=== PATIENT | female | born 1965 | race Caucasian/White ===

== ENCOUNTER → 2018-08-25 | Outpatient (CLI) | payer OTHER ==
[~2018-08-25] MED LIST: ACET500 PO; ALBU90OI6 INH; AMLO5 PO; ASCO500 PO; ASPI81CH PO; ATOR10 PO; CALCIUM + D3 E1 EACH PO; Cheratussin AC118 ML PO; Cholestyramine R5 GM; DULO30 PO; FLONASE ALLERG9.9 ML; LEVSOD88 PO; LORA10ER PO; METO25ER PO; MONT10T PO; POTCHL10ER; Zantac150 MG PO
== END | disposition home or self-care (01) ==
LOC: LAB 16:23 → LAB SHORT 16:23
DX: N39.0 Urinary tract infection, site not specified (principal)
CPT/HCPCS: 87086

== ENCOUNTER 2023-05-12 09:57 | Day surgery (SDC) | payer OTHER ==
[~2023-05-12] VITALS: Ht 147.3 cm; Wt 104.1 kg
[~2023-05-12 09:57] MED LIST changes: +Ultram50 MG PO
[2023-05-12] MEDS ORDERED: EUTHYROX137 MC1 PO (10:19)
[2023-05-12] MEDS ORDERED: Acetaminophen650 M1 PO (10:20)
[2023-05-12] MEDS ORDERED: AMLODIPINE BESYL5 MG PO (10:21)
[2023-05-12] MEDS ORDERED: PANTOPRAZOLE SO40 M2 PO (10:21)
[2023-05-12] MEDS ORDERED: IBUP400 PO (10:21)
[2023-05-12] MEDS ORDERED: TOPI100 (10:25)
[2023-05-12] MEDS ORDERED: BUTALBITAL-ASA1 EACH PO (10:25)
[2023-05-12] MEDS ORDERED: Propranolol HCl60 MG (10:25)
[2023-05-12] MEDS ORDERED: BUPR100ER PO (10:26)
--- NOTE | 2023-05-12 11:05 | NUR ---
05/12/23 1105 Jordyn Smith 5 TOTAL IV ATTEMPTS, DR DOMÍNGUEZ DISCUSSED OPTIONS WITH PT PLAN IS TO ATTEMPT IV IN OR PT AGREES TO PLAN.
--- NOTE | 2023-05-12 12:14 | NUR ---
05/12/23 1214 JEANIEJOHNATHAN AND GRANDDTR IN TO SEE PT. PT ALERT AND DOING WELL. BP IS STILL ELEVATED 184/95. SHE STATES THAT SHE DIDN'T TAKE HER BP MED TODAY AND PLANS ON TAKING IT WHEN SHE GOES HOME.
[2023-05-12 12:28] VITALS: BP 184/95
== END 2023-05-12 12:52 | disposition home or self-care (01) ==
LOC: ORSCSDS 09:57
PROVIDERS: Orthopaedic Surgery
PROC: 01N50ZZ Release Median Nerve, Open Approach (ICD-10-PCS; principal; 2023-05-12 11:15)
DX: G56.03 Carpal tunnel syndrome, bilateral upper limbs (principal); I10 Essential (primary) hypertension; K21.9 Gastro-esophageal reflux disease without esophagitis; E03.9 Hypothyroidism, unspecified; F41.9 Anxiety disorder, unspecified; F32.A Depression, unspecified; E66.9 Obesity, unspecified; Z68.42 Body mass index [BMI] 45.0-49.9, adult; Z79.899 Other long term (current) drug therapy
CPT/HCPCS: J0690; J2250; J2371; J2704; J7120